=== PATIENT | male | born 2000 | race Caucasian/White ===

== ENCOUNTER 2020-10-30 02:00 | Emergency (ER) | payer OTHER ==
[~2020-10-30] VITALS: Ht 177.8 cm; Wt 84.0 kg
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
[2020-10-30 03:22] VITALS: BP 142/90
--- NOTE | 2020-10-30 03:22 | NUR ---
Patient given discharge instructions and they have confirmed that they understand the instructions. Patient ambulatory with steady gait.
== END 2020-10-30 03:24 | disposition home or self-care (01) ==
LOC: ED 02:30
DX: S00.531A Contusion of lip, initial encounter (principal); S03.2XXA Dislocation of tooth, initial encounter; W19.XXXA Unspecified fall, initial encounter; Y93.89 Activity, other specified; Y92.89 Other specified places as the place of occurrence of the external cause; Y99.8 Other external cause status
CPT/HCPCS: 99281